=== PATIENT | male | born 1955 | race Caucasian/White ===

== ENCOUNTER 2018-12-06 10:43 | Emergency (ER) | payer BC ==
[2018-12-06 11:17] LABS: Absolute Lymphocytes (CBC) 1.9 K/uL (0.7-4.9); Absolute Monocytes 0.7 K/uL (0.1-1.3); Absolute Neutrophil 4.5 K/uL (1.8-8.0); Basophils % 1.1 % (0-1.3); Eosinophils % 2.9 % (0-4.4); Hematocrit 46.6 % (39.6-49.0); Lymphocytes % 26.1 % (15.3-44.8); MPV 8.7 fL (7.6-11.3)
[2018-12-06 11:21] LABS: Protime INR 1.02
--- NOTE | 2018-12-06 11:21 | RAD REPORT ---
EXAM DESCRIPTION: CT - Ct Stroke Brain Wo Cont - 12/06/2018 11:13 am CLINICAL HISTORY: MENTAL STATUS CHANGE CVA symptomology COMPARISON: No comparisons TECHNIQUE: All CT scans are performed using dose optimization technique as appropriate and may inclu de automated exposure control or mA/KV adjustment according to patient size. FINDINGS: No intracranial hemorrhage, hydrocephalus or extra-axial fluid collection.No areas of brai n edema or evidence of midline shift. The paranasal sinuses and mastoids are clear. The calvarium is intact. IMPRESSION: No acute intracranial abnormality. The findings were discussed with Dr. Carnes on 12/06/2018 at 11 a.m. by telephone.
[2018-12-06 11:24] LABS: BUN Blood Urea Nitrogen 17 mg/dL (7-18); Bicarbonate 29 mmol/L (21-32); Glucose Level 112 mg/dL (74-106); Potassium 3.8 mmol/L (3.5-5.1); Sodium Level 143 mmol/L (136-145)
[2018-12-06] MEDS ORDERED: ALTEPLASE 100 ML IV ONE (11:24)
[2018-12-06] MEDS ORDERED: NA CHLORIDE 0.9% 100 ML IV ONE (11:31)
--- NOTE | 2018-12-06 11:54 | RAD REPORT ---
EXAM DESCRIPTION: RAD - Chest Single View - 12/06/2018 11:46 am CLINICAL HISTORY: STROKE ALRE Chest pain. COMPARISON: No comparisons FINDINGS: Portable technique limits examination quality. The lungs are grossly clear. The heart is normal in size. No displaced fractures. IMPRESSION: No acute intrathoracic process suspected.
--- NOTE | 2018-12-06 12:05 | EDPHYS ---
Physician Documentation [facility] Name: Alfredo Elizondo Age: 63 yrs Sex: Male : 1955 Arrival Date: 12/06/2018 Time: 10:44 Bed 2 Private MD: ED Physician [facility] HPI: 12/06 11:19 This 63 yrs old Male presents to ER via EMS with complaints of S/S of ps1 Possible Stroke. 11:19 The patient's problem is reported as difficulty walking, a facial droop, weakness, in ps1 the right upper extremity, in the right lower extremity, in the right side of face. Onset: The symptoms/episode began/occurred suddenly, at 09:30. No hx of stroke. Went to work and then sent to safety for difficulty speaking and facial droop. Intermittent symptoms between. Not on thinners. NIH 5. . Historical: - Allergies: 11:05 PENICILLINS; bp 11:05 SHELLFISH; bp - Home Meds: 11:05 Ramipril Oral [Active]; bp - PMHx: 11:05 Hypertension; bp - Immunization history:: Adult Immunizations up to date. - Social history:: Smoking status: unknown. - Ebola Screening: : Patient negative for fever greater than or equal to 101.5 degrees Fahrenheit, and additional compatible Ebola Virus Disease symptoms Patient denies exposure to infectious person Patient denies travel to an Ebola-affected area in the 21 days before illness onset No symptoms or risks identified at this time. ROS: 11:19 Constitutional: Negative for fever, chills, and weight loss, Eyes: Negative for injury, ps1 pain, redness, and discharge, Cardiovascular: Negative for chest pain, palpitations, and edema, Respiratory: Negative for shortness of breath, cough, wheezing, and pleuritic chest pain, Abdomen/GI: Negative for abdominal pain, nausea, vomiting, diarrhea, and constipation, Back: Negative for injury and pain, MS/Extremity: Negative for injury and deformity, Skin: Negative for injury, rash, and discoloration, Psych: Negative for depression, anxiety, suicide ideation, homicidal ideation, and hallucinations. 11:19 Neuro: Positive for speech changes, weakness. Exam: 11:19 Radiologist reports: normal ps1 11:19 Constitutional: This is a well developed, well nourished patient who is awake, alert, ps1 and in no acute distress. Head/Face: Normocephalic, atraumatic. Chest/axilla: Normal chest wall appearance and motion. Nontender with no deformity. No lesions are appreciated. Cardiovascular: Regular rate and rhythm. No gallops, murmurs, or rubs. Normal PMI, no JVD. No pulse deficits. Respiratory: Lungs have equal breath sounds bilaterally, clear to auscultation and percussion. No rales, rhonchi or wheezes noted. No increased work of breathing, no retractions or nasal flaring. Abdomen/GI: Soft, non-tender, with normal bowel sounds. No distension or tympany. No guarding or rebound. No evidence of tenderness throughout. Skin: Warm, dry with normal turgor. Normal color with no rashes, no lesions, and no evidence of cellulitis. MS/ Extremity: Pulses equal, no cyanosis. Neurovascular intact. Full, normal range of motion. Psych: Awake, alert, with orientation to person, place and time. Behavior, mood, and affect are within normal limits. 11:19 Neuro: Orientation: is normal, Mentation: is normal, Cranial nerves: facial droop noted on right, Cerebellar function: dysmetria is noted on the right, the patient is unable to track right heel to left jama, Motor: Strength is 2/5 in the right arm and right leg. Vital Signs: 10:45 BP 135 / 87; Pulse 77; Resp 18; Temp 98; Pulse Ox 96% ; Weight 72.57 kg; Height 5 ft. 7 bp in. (170.18 cm); 11:34 BP 142 / 86; Pulse 74; Resp 18 S; Pulse Ox 97% on R/A; aa5 11:43 BP 129 / 79; Pulse 74; Resp 18 S; Pulse Ox 95% on R/A; aa5 11:45 BP 131 / 86; Pulse 74; Resp 16 S; Pulse Ox 96% on 2 lpm NC; aa5 11:51 BP 131 / 88; Pulse 80; Resp 18 S; Pulse Ox 97% on 2 lpm NC; aa5 11:55 BP 127 / 88; Pulse 73; Resp 16 S; Pulse Ox 97% on 2 lpm NC; aa5 12:00 BP 125 / 82; Pulse 77; Resp 16 S; Pulse Ox 97% on 2 lpm NC; aa5 12:05 BP 130 / 85; Pulse 74; Resp 16; Pulse Ox 97% on 2 lpm NC; ca1 12:10 BP 137 / 82; Pulse 74; Resp 16; Pulse Ox 97% on 2 lpm NC; ca1 12:15 BP 131 / 90; Pulse 76; Resp 17; Pulse Ox 97% on 2 lpm NC; ca1 12:20 BP 145 / 91; Pulse 85; Resp 20; Pulse Ox 97% on 2 lpm NC; ca1 12:25 BP 144 / 95; Pulse 84; Resp 20; Pulse Ox 97% on 2 lpm NC; ca1 12:30 BP 136 / 89; Pulse 83; Resp 16 S; Pulse Ox 97% on 2 lpm NC; aa5 12:35 BP 123 / 94; Pulse 75; Resp 16 S; Pulse Ox 98% on 2 lpm NC; aa5 12:45 BP 132 / 85; Pulse 73; Resp 16 S; Pulse Ox 98% on 2 lpm NC; aa5 12:55 BP 132 / 80; Pulse 74; Resp 16 S; Pulse Ox 97% on 2 lpm NC; aa5 13:05 BP 119 / 83; Pulse 71; Resp 18 S; Pulse Ox 97% on 2 lpm NC; aa5 13:10 BP 128 / 80; Pulse 69; Resp 16 S; Pulse Ox 97% on 2 lpm NC; aa5 13:20 BP 121 / 83; Pulse 72; Resp 18 S; Pulse Ox 97% on 2 lpm NC; aa5 10:45 Body Mass Index 25.06 (72.57 kg, 170.18 cm) bp NIH Stroke Scale Scores: 10:45 NIHSS Score: 1 bp 10:49 NIHSS Score: 4 ca1 11:19 NIHSS Score: 5 ps1 12:00 NIHSS Score: 1 aa5 13:15 NIHSS Score: 0 aa5 MDM: 11:00 Patient medically screened. ps1 12/06 11:00 Order name: Basic Metabolic Panel; Complete Time: : bd 12/06 11:00 Order name: CBC with Diff; Complete Time: : bd 12/06 11:00 Order name: Protime (+inr); Complete Time: : bd 12/06 11:00 Order name: Ptt, Activated; Complete Time: bd 12/06 11:00 Order name: CT Stroke Brain w/o Contrast; Complete Time: : bp 12/06 11:00 Order name: Stroke CXR 1 View; Complete Time: 12:05 bp 12/06 11:54 Order name: Glucose, Ancillary Testing; Complete Time: 11:54 EDMS 12/06 11:00 Order name: Accucheck; Complete Time: 11: bd 12/06 11:00 Order name: Cardiac monitoring; Complete Time: : bd 12/06 11:00 Order name: EKG - Nurse/Tech; Complete Time: : bd 12/06 11:00 Order name: IV Saline Lock; Complete Time: : bd 12/06 11:00 Order name: Labs collected and sent; Complete Time: : bd 12/06 11:00 Order name: NPO; Complete Time: : bd 12/06 11:00 Order name: O2 Per Protocol; Complete Time: 11:32 bd 12/06 11:00 Order name: O2 Sat Monitoring; Complete Time: 11:33 bd 12/06 11:00 Order name: Stroke Swallow Screen; Complete Time: 12:41 bd 12/06 11:00 Order name: EKG; Complete Time: 11: bp 12/06 11:00 Order name: Accucheck; Complete Time: 12:03 bp 12/06 11:00 Order name: Cardiac monitoring; Complete Time: 12:03 bp 12/06 11:00 Order name: EKG - Nurse/Tech; Complete Time: 12:03 bp 12/06 11:00 Order name: IV Saline Lock; Complete Time: 12:03 bp 12/06 11:00 Order name: Labs collected and sent; Complete Time: 12:03 bp 12/06 11:00 Order name: NPO; Complete Time: 12:04 bp 12/06 11:00 Order name: O2 Per Protocol; Complete Time: 12:04 bp 12/06 11:00 Order name: O2 Sat Monitoring; Complete Time: 12:04 bp 12/06 11:00 Order name: Stroke Swallow Screen; Complete Time: 12:04 bp Administered Medications: 11:13 CANCELLED (Duplicate Order): Alteplase (Bolus for Stroke) - Activase 0.09 mg/kg IV ps1 Thrombolytics once over 1 mins; Max Bolus dose 9 mg. 11:35 Drug: Alteplase {Co-Signature: ca1 (Isabell Lopez RN).} {Note: Bolus given at 1135 and aa5 drip started at 1136. .} Route: IV Thrombolytics; Rate: calculated rate; 12:36 Follow up: Response: No adverse reaction; Completed infusion aa5 Point of Care Testing: Blood Glucose: 10:58 Blood Glucose: 125 mg/dL; iw Ranges: Critical Glucose Levels:Adult <50 mg/dl or >400 mg/dl <40 mg/dl or >180 mg/dl Disposition: 12/06/18 12:05 Transfer ordered to Other Acute Care Facility. Diagnosis is Stroke. - Reason for transfer: Higher level of care. - Accepting physician is stroke. - Condition is Fair. - Problem is new. - Symptoms have improved. NIH Stroke Scale - NIH Stroke Score Date: 12/06/2018 Time: 10:45 Total Score = 1 1a. Level of Consciousness (LOC) - 0(Alert) 1b. Level of Consciousness (LOC) (Year \T\ Age) - 0(Both) 1c. LOC Commands (Open \T\ Closes Eyes/Lumber Piler Operator) - 0(Both) 2. Best Gaze (Lateral Gaze Paresis) - 0(Normal) 3. Visual Field Loss - 0(No visual loss) 4. Facial Palsy - 0(Normal) 5a. Left Arm: Motor (10-second hold) - 0(No drift) 5b. Right Arm: Motor (10-second hold) - 0(No drift) 6a. Left Leg: Motor (5-second hold - always test supine) - 0(No drift) 6b. Right Leg: Motor (5-second hold - always test supine) - 0(No drift) 7. Limb Ataxia (finger/nose \T\ heel/jama - test with eyes open) - 0(Absent) 8. Sensory Loss (pinprick arms/legs/face) - 1(Mild to moderate loss) 9. Best Language: Aphasia (description/naming/reading) - 0(No aphasia) 10. Dysarthria (speech clarity - read or repeat words) - 0(Normal) 11. Extinction and Inattention (visual/tactile/auditory/spatial/personal) - 0(No abnormality) Initials: bp NIH Stroke Scale - NIH Stroke Score Date: 12/06/2018 Time: 10:49 Total Score = 4 1a. Level of Consciousness (LOC) - 0(Alert) 1b. Level of Consciousness (LOC) (Year \T\ Age) - 0(Both) 1c. LOC Commands (Open \T\ Closes Eyes/Lumber Piler Operator) - 0(Both) 2. Best Gaze (Lateral Gaze Paresis) - 0(Normal) 3. Visual Field Loss - 0(No visual loss) 4. Facial Palsy - 0(Normal) 5a. Left Arm: Motor (10-second hold) - 0(No drift) 5b. Right Arm: Motor (10-second hold) - 1(Drift) 6a. Left Leg: Motor (5-second hold - always test supine) - 0(No drift) 6b. Right Leg: Motor (5-second hold - always test supine) - 1(Drift) 7. Limb Ataxia (finger/nose \T\ heel/jama - test with eyes open) - 0(Absent) 8. Sensory Loss (pinprick arms/legs/face) - 1(Mild to moderate loss) 9. Best Language: Aphasia (description/naming/reading) - 0(No aphasia) 10. Dysarthria (speech clarity - read or repeat words) - 1(Mild to Moderate) 11. Extinction and Inattention (visual/tactile/auditory/spatial/personal) - 0(No abnormality) Initials: ca1 NIH Stroke Scale - NIH Stroke Score Date: 12/06/2018 Time: 11:19 Total Score = 5 1a. Level of Consciousness (LOC) - 0(Alert) 1b. Level of Consciousness (LOC) (Year \T\ Age) - 0(Both) 1c. LOC Commands (Open \T\ Closes Eyes/Lumber Piler Operator) - 0(Both) 2. Best Gaze (Lateral Gaze Paresis) - 0(Normal) 3. Visual Field Loss - 0(No visual loss) 4. Facial Palsy - 1(Minor Paralysis) 5a. Left Arm: Motor (10-second hold) - 0(No drift) 5b. Right Arm: Motor (10-second hold) - 1(Drift) 6a. Left Leg: Motor (5-second hold - always test supine) - 0(No drift) 6b. Right Leg: Motor (5-second hold - always test supine) - 1(Drift) 7. Limb Ataxia (finger/nose \T\ heel/jama - test with eyes open) - 1(Present in one limb) 8. Sensory Loss (pinprick arms/legs/face) - 0(Normal) 9. Best Language: Aphasia (description/naming/reading) - 0(No aphasia) 10. Dysarthria (speech clarity - read or repeat words) - 1(Mild to Moderate) 11. Extinction and Inattention (visual/tactile/auditory/spatial/personal) - 0(No abnormality) Initials: ps1 NIH Stroke Scale - NIH Stroke Score Date: 12/06/2018 Time: 12:00 Total Score = 1 1a. Level of Consciousness (LOC) - 0(Alert) 1b. Level of Consciousness (LOC) (Year \T\ Age) - 0(Both) 1c. LOC Commands (Open \T\ Closes Eyes/Lumber Piler Operator) - 0(Both) 2. Best Gaze (Lateral Gaze Paresis) - 0(Normal) 3. Visual Field Loss - 0(No visual loss) 4. Facial Palsy - 0(Normal) 5a. Left Arm: Motor (10-second hold) - 0(No drift) 5b. Right Arm: Motor (10-second hold) - 0(No drift) 6a. Left Leg: Motor (5-second hold - always test supine) - 0(No drift) 6b. Right Leg: Motor (5-second hold - always test supine) - 0(No drift) 7. Limb Ataxia (finger/nose \T\ heel/jama - test with eyes open) - 0(Absent) 8. Sensory Loss (pinprick arms/legs/face) - 1(Mild to moderate loss) 9. Best Language: Aphasia (description/naming/reading) - 0(No aphasia) 10. Dysarthria (speech clarity - read or repeat words) - 0(Normal) 11. Extinction and Inattention (visual/tactile/auditory/spatial/personal) - 0(No abnormality) Initials: aa5 NIH Stroke Scale - NIH Stroke Score Date: 12/06/2018 Time: 13:15 Total Score = 0 1a. Level of Consciousness (LOC) - 0(Alert) 1b. Level of Consciousness (LOC) (Year \T\ Age) - 0(Both) 1c. LOC Commands (Open \T\ Closes Eyes/Lumber Piler Operator) - 0(Both) 2. Best Gaze (Lateral Gaze Paresis) - 0(Normal) 3. Visual Field Loss - 0(No visual loss) 4. Facial Palsy - 0(Normal) 5a. Left Arm: Motor (10-second hold) - 0(No drift) 5b. Right Arm: Motor (10-second hold) - 0(No drift) 6a. Left Leg: Motor (5-second hold - always test supine) - 0(No drift) 6b. Right Leg: Motor (5-second hold - always test supine) - 0(No drift) 7. Limb Ataxia (finger/nose \T\ heel/jama - test with eyes open) - 0(Absent) 8. Sensory Loss (pinprick arms/legs/face) - 0(Normal) 9. Best Language: Aphasia (description/naming/reading) - 0(No aphasia) 10. Dysarthria (speech clarity - read or repeat words) - 0(Normal) 11. Extinction and Inattention (visual/tactile/auditory/spatial/personal) - 0(No abnormality) Initials: aa5 Signatures: Dispatcher [employer] EDMS Noreen De Leon Audri, RN RN aa5 Benny Walker RN RN bp Singer, Phillip, MD MD ps1 Isabell Lopez RN RN ca1 Isabell Lopez RN ca1 Corrections: (The following items were deleted from the chart) 11:13 11:08 CT-STROKE BRAIN W/O CONTRAST+CT.RAD.BRZ ordered. EDNJ EDMS 11:13 11:08 BASIC METABOLIC PANEL+C.LAB.BRZ ordered. EDNJ EDMS 11:13 11:08 CBC+H.LAB.BRZ ordered. EDNJ EDMS 11:13 11:08 PROTIME (+INR)+COAG.LAB.BRZ ordered. EDNJ EDMS 11:13 11:08 PTT, ACTIVATED+COAG.LAB.BRZ ordered. EDNJ EDMS 11:13 11:13 Alteplase (Bolus for Stroke) - Activase 0.09 mg/kg IV Thrombolytics once ps1 over 1 mins; Max Bolus dose 9 mg. ordered. ps1 11:14 11:08 Chest Single View+RAD.RAD.BRZ ordered. EDNJ EDMS 11:46 11:07 Neck Angio+CT.RAD.BRZ ordered. EDNJ EDMS 11:46 11:07 Head Angio+CT.RAD.BRZ ordered. EDNJ EDMS 13:32 12:05 12/06/2018 12:05 Transfer ordered to Other Acute Care Facility. Diagnosis ca1 is Stroke. Reason for transfer: Higher level of care. Accepting physician is stroke. Condition is Fair. Problem is new. Symptoms have improved. ps1
--- NOTE | 2018-12-06 12:05 | ER ---
Nurse's Notes [facility] Name: Alfredo Elizondo Age: 63 yrs Sex: Male : 1955 Arrival Date: 12/06/2018 Time: 10:44 Bed 2 Private MD: Diagnosis: Stroke Presentation: 12/06 10:45 Presenting complaint: EMS states: 63YO WM P/W INTERMITTENT R FACE WEAKNESS/NUMBNESS, bp RUE WEAKNESS/NUMBNESS AND DYSARTHRIA, NOW WITH ONLY RUE NUMBNESS. Transition of care: patient was not received from another setting of care. An acute neurological deficit is present. The charge nurse has been notified. The patient has been moved to a treatment area. The patients blood glucose was checked before arriving to the hospital and was found to be normal. Onset of symptoms was December 06, 2018 at 09:30. Risk Assessment: Do you want to hurt yourself or someone else? Patient reports no desire to harm self or others. Initial Sepsis Screen: Does the patient meet any 2 criteria? No. Patient's initial sepsis screen is negative. Does the patient have a suspected source of infection? No. Patient's initial sepsis screen is negative. Care prior to arrival: Glucose check: 111. 10:45 Method Of Arrival: EMS: [facility] bp 10:45 Acuity: SAM 1 bp Triage Assessment: 10:45 The onset of the patients symptoms was December 06, 2018 at 09:30. General: Appears in bp no apparent distress. comfortable, Behavior is calm, cooperative, appropriate for age. Pain: Denies pain. EENT: No deficits noted. Neuro: Level of Consciousness is awake, alert, obeys commands, Oriented to person, place, time, situation, Appropriate for age Grinder Chipper are equal bilaterally Moves all extremities. Gait is steady, Speech is normal, Facial symmetry appears normal, Pupils are PERRLA, Numbness in right hand Reports weakness in RIGHT FACE, RIGHT ARM. 10:45 Cardiovascular: Rhythm is sinus rhythm. Respiratory: Airway is patent Respiratory bp effort is even, unlabored, Respiratory pattern is regular, symmetrical. GI: No signs and/or symptoms were reported involving the gastrointestinal system. : No signs and/or symptoms were reported regarding the genitourinary system. Derm: No deficits noted. Musculoskeletal: Circulation, motion, and sensation intact. Range of motion: intact in all extremities. Stroke Activation: Symptom onset < 3 hours Physician: Stroke Attending; Name: ; Notified At: ; Arrived At: Physician: Chief Stroke Resident; Name: ; Notified At: ; Arrived At: Physician: Stroke Resident; Name: ; Notified At: ; Arrived At: Physician: ED Attending; Name: ; Notified At: 10:45; Arrived At: 10:45 Physician: ED Resident; Name: ; Notified At: ; Arrived At: Historical: - Allergies: 11:05 PENICILLINS; bp 11:05 SHELLFISH; bp - Home Meds: 11:05 Ramipril Oral [Active]; bp - PMHx: 11:05 Hypertension; bp - Immunization history:: Adult Immunizations up to date. - Social history:: Smoking status: unknown. - Ebola Screening: : Patient negative for fever greater than or equal to 101.5 degrees Fahrenheit, and additional compatible Ebola Virus Disease symptoms Patient denies exposure to infectious person Patient denies travel to an Ebola-affected area in the 21 days before illness onset No symptoms or risks identified at this time. Screenin:45 Abuse screen: Denies threats or abuse. Denies injuries from another. Nutritional bp screening: No deficits noted. Tuberculosis screening: No symptoms or risk factors identified. Fall Risk No fall in past 12 months (0 pts). No secondary diagnosis (0 pts). No IV (0 pts). Ambulatory Aid- None/Bed Rest/Nurse Assist (0 pts). Gait- Normal/Bed Rest/Wheelchair (0 pts) Mental Status- Oriented to own ability (0 pts). Total Larson Fall Scale indicates No Risk (0-24 pts). Assessment: 10:49 General: Appears in no apparent distress. uncomfortable, Behavior is calm, cooperative, ca1 appropriate for age. Pain: Denies pain. Neuro: Level of Consciousness is awake, alert, obeys commands, Oriented to person, place, time, situation, Grinder Chipper are weak on right Weakness in right arm(s) leg(s) Speech is slurred, slow to respond.. Facial symmetry appears normal, Pupils are PERRLA, Tingling in right arm. Cardiovascular: Heart tones S1 S2 present Capillary refill < 3 seconds Patient's skin is warm and dry. Rhythm is sinus rhythm. 10:49 Respiratory: Airway is patent Trachea midline Respiratory effort is even, unlabored, ca1 Respiratory pattern is regular, symmetrical, Breath sounds are clear bilaterally. GI: Abdomen is flat, Bowel sounds present X 4 quads. Abd is soft and non tender X 4 quads. : No signs and/or symptoms were reported regarding the genitourinary system. EENT: No signs and/or symptoms were reported regarding the EENT system. Derm: Skin is intact, is healthy with good turgor, Skin is pink, warm \T\ dry. Derm: Skin is intact, is healthy with good turgor, Skin is pink, warm \T\ dry. Musculoskeletal: Capillary refill < 3 seconds, Range of motion: intact in all extremities. 11:00 Reassessment: Dr. Garcia reports CT was negative for hemorrhagic stroke. iw 11:20 T-PA (Activase) Screening: Indications: Treatment will start within 4.5 hours onset of aa5 symptoms: Yes. 11:33 Reassessment: Pt back from CT scan. Dr. Hinds at bedside. . Neuro: Level of aa5 Consciousness is awake, alert, obeys commands, Oriented to person, place, time, situation, Grinder Chipper are equal bilaterally Moves all extremities. Speech is normal, Facial symmetry appears normal, Pupils are PERRLA, Reports tingling to right hand. . 11:33 Respiratory: Airway is patent Respiratory effort is even, unlabored, Respiratory aa5 pattern is regular, symmetrical. Derm: Skin is pink, warm \T\ dry. 12:00 Neuro: Level of Consciousness is awake, alert, obeys commands, Oriented to person, aa5 place, time, situation, Grinder Chipper are equal bilaterally Moves all extremities. Speech is normal, Facial symmetry appears normal, Pupils are PERRLA, Pt reports mild tingling to right fingers. . Cardiovascular: Rhythm is sinus rhythm. Respiratory: Airway is patent Respiratory effort is even, unlabored, Respiratory pattern is regular, symmetrical. Derm: Skin is pink, warm \T\ dry. 12:10 Patient has been NPO before screening. The patient is alert, and able to follow ca1 commands. The patient does not exhibit slurred or garbled speech. The patient is not exhibiting difficulty speaking. The patient does not exhibit difficulty understanding words. The patient is able to swallow own secretions with no drooling or need for suction. Patient tolerated one teaspoon of water. No drooling, immediate coughing, gurgling, or clearing of the throat was noted. The patient tolerated 90mL of water. No drooling, immediate coughing, gurgling, or clearing of the throat was noted. The patient passed the bedside swallow screening. Oral medications may be given as ordered. Contact Physician for further diet orders. Provider notified of bedside swallow screening results: Kaiser Hinds MD. 13:15 Neuro: Level of Consciousness is awake, alert, obeys commands, Oriented to person, aa5 place, time, situation, Grinder Chipper are equal bilaterally Moves all extremities. Speech is normal, Facial symmetry appears normal, Pupils are PERRLA. Cardiovascular: Rhythm is sinus rhythm. Respiratory: Airway is patent Respiratory effort is even, unlabored, Respiratory pattern is regular, symmetrical. Derm: Skin is pink, warm \T\ dry. Vital Signs: 10:45 BP 135 / 87; Pulse 77; Resp 18; Temp 98; Pulse Ox 96% ; Weight 72.57 kg; Height 5 ft. 7 bp in. (170.18 cm); 11:34 BP 142 / 86; Pulse 74; Resp 18 S; Pulse Ox 97% on R/A; aa5 11:43 BP 129 / 79; Pulse 74; Resp 18 S; Pulse Ox 95% on R/A; aa5 11:45 BP 131 / 86; Pulse 74; Resp 16 S; Pulse Ox 96% on 2 lpm NC; aa5 11:51 BP 131 / 88; Pulse 80; Resp 18 S; Pulse Ox 97% on 2 lpm NC; aa5 11:55 BP 127 / 88; Pulse 73; Resp 16 S; Pulse Ox 97% on 2 lpm NC; aa5 12:00 BP 125 / 82; Pulse 77; Resp 16 S; Pulse Ox 97% on 2 lpm NC; aa5 12:05 BP 130 / 85; Pulse 74; Resp 16; Pulse Ox 97% on 2 lpm NC; ca1 12:10 BP 137 / 82; Pulse 74; Resp 16; Pulse Ox 97% on 2 lpm NC; ca1 12:15 BP 131 / 90; Pulse 76; Resp 17; Pulse Ox 97% on 2 lpm NC; ca1 12:20 BP 145 / 91; Pulse 85; Resp 20; Pulse Ox 97% on 2 lpm NC; ca1 12:25 BP 144 / 95; Pulse 84; Resp 20; Pulse Ox 97% on 2 lpm NC; ca1 12:30 BP 136 / 89; Pulse 83; Resp 16 S; Pulse Ox 97% on 2 lpm NC; aa5 12:35 BP 123 / 94; Pulse 75; Resp 16 S; Pulse Ox 98% on 2 lpm NC; aa5 12:45 BP 132 / 85; Pulse 73; Resp 16 S; Pulse Ox 98% on 2 lpm NC; aa5 12:55 BP 132 / 80; Pulse 74; Resp 16 S; Pulse Ox 97% on 2 lpm NC; aa5 13:05 BP 119 / 83; Pulse 71; Resp 18 S; Pulse Ox 97% on 2 lpm NC; aa5 13:10 BP 128 / 80; Pulse 69; Resp 16 S; Pulse Ox 97% on 2 lpm NC; aa5 13:20 BP 121 / 83; Pulse 72; Resp 18 S; Pulse Ox 97% on 2 lpm NC; aa5 10:45 Body Mass Index 25.06 (72.57 kg, 170.18 cm) bp NIH Stroke Scale Scores: 10:45 NIHSS Score: 1 bp 10:49 NIHSS Score: 4 ca1 11:19 NIHSS Score: 5 ps1 12:00 NIHSS Score: 1 aa5 13:15 NIHSS Score: 0 aa5 ED Course: 10:44 Patient arrived in ED. iw 10:45 Arm band placed on. bp 10:45 Patient has correct armband on for positive identification. Placed in gown. Bed in low bp position. Call light in reach. Side rails up X2. 10:47 Kaiser Hinds MD is Attending Physician. ps1 10:49 daycare assistant on. Pulse ox on. NIBP on. ca1 10:49 Inserted saline lock: 18 gauge in left antecubital area, using aseptic technique. aa5 10:50 Isabell Lopez, MUNDO is Primary Nurse. ca1 10:57 Triage completed. bp 11:06 EKG done, by pipe organ technician. reviewed by Kaiser Hinds MD. sm3 11:14 CT Stroke Brain w/o Contrast In Process Unspecified. EDMS 11:36 Inserted saline lock: 18 gauge in right forearm, using aseptic technique. aa5 11:48 Stroke CXR 1 View In Process Unspecified. EDMS 13:25 No provider procedures requiring assistance completed. Patient transferred, IV remains aa5 in place. Administered Medications: 11:13 CANCELLED (Duplicate Order): Alteplase (Bolus for Stroke) - Activase 0.09 mg/kg IV ps1 Thrombolytics once over 1 mins; Max Bolus dose 9 mg. 11:35 Drug: Alteplase {Co-Signature: ca1 (Isabell Lopez RN).} {Note: Bolus given at 1135 and aa5 drip started at 1136. .} Route: IV Thrombolytics; Rate: calculated rate; 12:36 Follow up: Response: No adverse reaction; Completed infusion aa5 Point of Care Testing: Blood Glucose: 10:58 Blood Glucose: 125 mg/dL; iw Ranges: Intake: Outcome: 12:05 ER care complete, transfer ordered by . ps1 13:25 Patient left the ED. aa5 13:25 Transferred by ground EMS Transfer form completed. X-rays sent w/ patient. Note: aa5 [facility]. Report given to [facility]. 13:25 Condition: stable 13:25 Instructed on the need for transfer, Demonstrated understanding of instructions. NIH Stroke Scale - NIH Stroke Score Date: 12/06/2018 Time: 10:45 Total Score = 1 1a. Level of Consciousness (LOC) - 0(Alert) 1b. Level of Consciousness (LOC) (Year \T\ Age) - 0(Both) 1c. LOC Commands (Open \T\ Closes Eyes/Reducing Machine Operator) - 0(Both) 2. Best Gaze (Lateral Gaze Paresis) - 0(Normal) 3. Visual Field Loss - 0(No visual loss) 4. Facial Palsy - 0(Normal) 5a. Left Arm: Motor (10-second hold) - 0(No drift) 5b. Right Arm: Motor (10-second hold) - 0(No drift) 6a. Left Leg: Motor (5-second hold - always test supine) - 0(No drift) 6b. Right Leg: Motor (5-second hold - always test supine) - 0(No drift) 7. Limb Ataxia (finger/nose \T\ heel/jama - test with eyes open) - 0(Absent) 8. Sensory Loss (pinprick arms/legs/face) - 1(Mild to moderate loss) 9. Best Language: Aphasia (description/naming/reading) - 0(No aphasia) 10. Dysarthria (speech clarity - read or repeat words) - 0(Normal) 11. Extinction and Inattention (visual/tactile/auditory/spatial/personal) - 0(No abnormality) Initials: bp NIH Stroke Scale - NIH Stroke Score Date: 12/06/2018 Time: 10:49 Total Score = 4 1a. Level of Consciousness (LOC) - 0(Alert) 1b. Level of Consciousness (LOC) (Year \T\ Age) - 0(Both) 1c. LOC Commands (Open \T\ Closes Eyes/Reducing Machine Operator) - 0(Both) 2. Best Gaze (Lateral Gaze Paresis) - 0(Normal) 3. Visual Field Loss - 0(No visual loss) 4. Facial Palsy - 0(Normal) 5a. Left Arm: Motor (10-second hold) - 0(No drift) 5b. Right Arm: Motor (10-second hold) - 1(Drift) 6a. Left Leg: Motor (5-second hold - always test supine) - 0(No drift) 6b. Right Leg: Motor (5-second hold - always test supine) - 1(Drift) 7. Limb Ataxia (finger/nose \T\ heel/jama - test with eyes open) - 0(Absent) 8. Sensory Loss (pinprick arms/legs/face) - 1(Mild to moderate loss) 9. Best Language: Aphasia (description/naming/reading) - 0(No aphasia) 10. Dysarthria (speech clarity - read or repeat words) - 1(Mild to Moderate) 11. Extinction and Inattention (visual/tactile/auditory/spatial/personal) - 0(No abnormality) Initials: ca1 NIH Stroke Scale - NIH Stroke Score Date: 12/06/2018 Time: 11:19 Total Score = 5 1a. Level of Consciousness (LOC) - 0(Alert) 1b. Level of Consciousness (LOC) (Year \T\ Age) - 0(Both) 1c. LOC Commands (Open \T\ Closes Eyes/Reducing Machine Operator) - 0(Both) 2. Best Gaze (Lateral Gaze Paresis) - 0(Normal) 3. Visual Field Loss - 0(No visual loss) 4. Facial Palsy - 1(Minor Paralysis) 5a. Left Arm: Motor (10-second hold) - 0(No drift) 5b. Right Arm: Motor (10-second hold) - 1(Drift) 6a. Left Leg: Motor (5-second hold - always test supine) - 0(No drift) 6b. Right Leg: Motor (5-second hold - always test supine) - 1(Drift) 7. Limb Ataxia (finger/nose \T\ heel/jama - test with eyes open) - 1(Present in one limb) 8. Sensory Loss (pinprick arms/legs/face) - 0(Normal) 9. Best Language: Aphasia (description/naming/reading) - 0(No aphasia) 10. Dysarthria (speech clarity - read or repeat words) - 1(Mild to Moderate) 11. Extinction and Inattention (visual/tactile/auditory/spatial/personal) - 0(No abnormality) Initials: ps1 NIH Stroke Scale - NIH Stroke Score Date: 12/06/2018 Time: 12:00 Total Score = 1 1a. Level of Consciousness (LOC) - 0(Alert) 1b. Level of Consciousness (LOC) (Year \T\ Age) - 0(Both) 1c. LOC Commands (Open \T\ Closes Eyes/Reducing Machine Operator) - 0(Both) 2. Best Gaze (Lateral Gaze Paresis) - 0(Normal) 3. Visual Field Loss - 0(No visual loss) 4. Facial Palsy - 0(Normal) 5a. Left Arm: Motor (10-second hold) - 0(No drift) 5b. Right Arm: Motor (10-second hold) - 0(No drift) 6a. Left Leg: Motor (5-second hold - always test supine) - 0(No drift) 6b. Right Leg: Motor (5-second hold - always test supine) - 0(No drift) 7. Limb Ataxia (finger/nose \T\ heel/jama - test with eyes open) - 0(Absent) 8. Sensory Loss (pinprick arms/legs/face) - 1(Mild to moderate loss) 9. Best Language: Aphasia (description/naming/reading) - 0(No aphasia) 10. Dysarthria (speech clarity - read or repeat words) - 0(Normal) 11. Extinction and Inattention (visual/tactile/auditory/spatial/personal) - 0(No abnormality) Initials: aa5 NIH Stroke Scale - NIH Stroke Score Date: 12/06/2018 Time: 13:15 Total Score = 0 1a. Level of Consciousness (LOC) - 0(Alert) 1b. Level of Consciousness (LOC) (Year \T\ Age) - 0(Both) 1c. LOC Commands (Open \T\ Closes Eyes/Reducing Machine Operator) - 0(Both) 2. Best Gaze (Lateral Gaze Paresis) - 0(Normal) 3. Visual Field Loss - 0(No visual loss) 4. Facial Palsy - 0(Normal) 5a. Left Arm: Motor (10-second hold) - 0(No drift) 5b. Right Arm: Motor (10-second hold) - 0(No drift) 6a. Left Leg: Motor (5-second hold - always test supine) - 0(No drift) 6b. Right Leg: Motor (5-second hold - always test supine) - 0(No drift) 7. Limb Ataxia (finger/nose \T\ heel/jama - test with eyes open) - 0(Absent) 8. Sensory Loss (pinprick arms/legs/face) - 0(Normal) 9. Best Language: Aphasia (description/naming/reading) - 0(No aphasia) 10. Dysarthria (speech clarity - read or repeat words) - 0(Normal) 11. Extinction and Inattention (visual/tactile/auditory/spatial/personal) - 0(No abnormality) Initials: aa5 Signatures: Dispatcher [employer] EDMS Elysia Petersen RN RN iw Valeria Patino RN RN aa5 Benny Walker RN RN Kaiser Hurtado MD MD ps1 Montes, Shakira 3 Isabell Lopez RN RN ca1 Isabell Lopez RN ca1 Corrections: (The following items were deleted from the chart) 13:36 13:32 Patient left the ED. ca1 aa5 13:41 12:35 Response: No adverse reaction; Completed infusion aa5 aa5
--- NOTE | 2018-12-06 12:26 | EKG ---
Test Date: 2018-12-06 Test Time: 11:02:10 [employer] Deployment Lead: FREDERICK MEASUREMENT RESULTS: Intervals: Rate: 74 AK: 148 QRSD: 102 QT: 392 QTc: 435 [place]: P: 63 AK: 148 QRS: 73 T: 54 INTERPRETIVE STATEMENTS: Normal sinus rhythm Incomplete right bundle branch block Borderline ECG No previous ECG available for comparison Electronically Signed On 12-06-18 12:25:27 BIT SHARPENER OPERATOR by Kirt Lee
== END 2018-12-06 13:32 ==
LOC: ER 10:43
DX: I63.9 Cerebral infarction, unspecified (principal); R29.810 Facial weakness; R53.1 Weakness; I10 Essential (primary) hypertension; I45.10 Unspecified right bundle-branch block; Z79.899 Other long term (current) drug therapy
CPT/HCPCS: 36415; 70450; 71045; 80048; 82962; 85025; 85610; 85730; 92977; 93005; 99291; J2997